=== PATIENT | male | born 1975 | race African-American/Black ===

== ENCOUNTER 2021-03-30 13:18 | Emergency (ER) | payer SELFPAY ==
[~2021-03-30] VITALS: Ht 162.6 cm; Wt 102.5 kg
[2021-03-30 13:32] VITALS: BP 158/96
--- NOTE | 2021-03-30 13:35 | PHYS DOC ---
Past History Past Medical History: No Pertinent History Past Surgical History: No Surgical History Smoking: Non-smoker Alcohol Use: None Drug Use: None Adult General HPI HPI Patient is a 45-year-old male presenting via EMS for code stroke. Last known normal was 1245. Patient was at [facility] when symptoms started. He was in a seated position and [facility] was dismissed so he stood up when he started having symptoms of lightheadedness, dizziness, alteration in smell and generalized confusion. States states shortly after symptom onset he had difficulty speaking and felt weak falling to his knees. This entire episode was witnessed by bystanders, there is no obvious loss of consciousness, trauma, patient did not hit his head and was caught before any other type of body trauma beyond falling to his knees. EMS was contacted and on arrival, patient found to have unremarkable fingerstick glucose and was hemodynamically stable. There was concern given reported symptoms so EMS called code stroke and emergently transported patient to our facility Review of Systems Review of Systems Fourteen body systems of review of systems have been reviewed. See HPI for pertinent positives and negative responses, other arreola all other systems are negative, non-pertinent or non-contributory Physical Exam Physical Exam General: Appears well, age-appropriate, overweight but is non toxic in appearance, and comfortable Skin: Warm, dry. Normal for ethnicity. HEENT: Atraumatic. PERRLA. Moist mucous membranes. Neck: Trachea midline. Normal ROM. Respiratory: Normal WOB. CTAB w/o w/r/r. No tachypnea. Cardiovascular: Regular rate and rhythm. Normal peripheral perfusion. No edema. Abdomen: Soft. Non tender. No distension. Back: Normal ROM. Musculoskeletal: No swelling or deformity. Neuro: Alert and oriented x 4. MAEE. GCS 15. Normal FNF. Negative pronator drift. Normal heel to callahan. Normal Anthony. CN II-XII intact. Normal strength and sensation. Normal speech. Psych: Normal affect and mood. Current Patient Data Vital Signs Vital Signs Date Time Temp Pulse Resp B/P (MAP) Pulse Ox O2 Delivery O2 Flow Rate FiO2 03/30/21 13:32 70 18 158/96 (116) 95 Vital Signs Date Time Temp Pulse Resp B/P (MAP) Pulse Ox O2 Delivery O2 Flow Rate FiO2 03/30/21 13:32 70 18 158/96 (116) 95 Lab Results Laboratory Tests Test 03/30/21 13:30 03/30/21 13:31 03/30/21 14:12 White Blood Count 4.9 x10^3/uL Red Blood Count 5.33 x10^6/uL Hemoglobin 15.4 g/dL Hematocrit 46.8 % Mean Corpuscular Volume 88 fL Mean Corpuscular Hemoglobin 29 pg Mean Corpuscular Hemoglobin Concent 33 g/dL Red Cell Distribution Width 13.7 % Platelet Count 282 x10^3/uL Neutrophils (%) (Auto) 72 % Lymphocytes (%) (Auto) 17 % Monocytes (%) (Auto) 7 % Eosinophils (%) (Auto) 2 % Basophils (%) (Auto) 1 % Neutrophils # (Auto) 3.5 x10^3uL Lymphocytes # (Auto) 0.9 x10^3/uL Monocytes # (Auto) 0.4 x10^3/uL Eosinophils # (Auto) 0.1 x10^3/uL Basophils # (Auto) 0.1 x10^3/uL Prothrombin Time 9.6 SEC Prothromb Time International Ratio 0.9 Activated Partial Thromboplast Time 24 SEC Sodium Level 139 mmol/L Potassium Level 4.1 mmol/L Chloride Level 102 mmol/L Carbon Dioxide Level 28 mmol/L Anion Gap 9 Blood Urea Nitrogen 15 mg/dL Creatinine 1.3 mg/dL Estimated GFR (Cockcroft-Gault) 72.9 Glucose Level 91 mg/dL Calcium Level 9.1 mg/dL Troponin I High Sensitivity 7 ng/L Glucose (Fingerstick) 65 mg/dL 123 mg/dL EKG EKG EKG ordered and interpreted by myself at 1339 hrs. as sinus rhythm at 73 bpm, unremarkable intervals, no axis deviation, no obvious ischemic findings, no STEMI Radiology/Procedures Radiology/Procedures CT HEAD WITHOUT CONTRAST History: Reason: SLURRED SPEECH /, code stroke. Comparison: None. Procedure: Axial images are obtained of the head from the skull base through the vertex without IV contrast. Findings: The ventricles and sulci are normal for the patient's age. No mass-effect, midline shift, hemorrhage, extra-axial fluid collection, or obvious acute infarction is identified. Basilar cisterns are patent. Bone windows demonstrate no acute calvarial abnormality. Minimal mucosal thickening bilateral maxillary sinuses. No air-fluid level. Mastoid air cells are well aerated. IMPRESSION: No acute intracranial abnormality. //////////////////////////////////////////////// EXAM: Chest, single view. HISTORY: Code stroke. COMPARISON: None. FINDINGS: A frontal view of the chest is obtained. There is no infiltrate, pleural effusion or pneumothorax. The heart is normal in size. IMPRESSION: No acute pulmonary finding. Electronically signed by: Sulma Elder MD (03/30/2021 1:45 PM) [facility] Heart Score C/O Chest Pain: No Risk Factors: Risk Factors: DM, Current or recent (<one month) smoker, HTN, HLP, family history of CAD, obesity. Risk Scores: Risk Factors: DM, Current or recent (<one month) smoker, HTN, HLP, family history of CAD, obesity. Course & Med Decision Making Course & Med Decision Making Code stroke initiated initially on arrival NIH stroke scale [address] scanner[address] CT head performed initially read by myself as negative, shortly after confirmed by radiologist. [id number] glucose 65 Patient brought back to room where further history, physical exam and comprehensive ER work-up obtained. Patient feels he is back at baseline, confirmed by at bedside Work-up reviewed with patient and grossly nonconcerning for any emergent or surgical issues. Discussed likely cause of symptoms being hypoglycemic episode versus vagovagal presyncopal episode, less likely intracranial abnormality or other potentially life-threatening diagnosis Patient monitored in the ER without recurrence of symptoms. Joint decision made among all to discharge home with close PCP follow-up. Strict return cautions discussed prior to ER departure Dragon Disclaimer Dragon Disclaimer This electronic medical record was generated, in whole or in part, using a voice recognition dictation system. Departure Departure: Impression: Primary Impression: Pre-syncope Disposition: HOME / SELF CARE / HOMELESS Condition: STABLE Referrals: PCP,NO (PCP) YESENIA MACHUCA MD Patient Instructions: Syncope, [id number] Additional Instructions: You were seen for a presyncopal episode. You should make sure to drink plenty of fluids. It is unclear what caused your symptoms but your initial evaluation did not show any concerning symptoms or features. Your comprehensive ER work-up was nonconcerning for any emergent or surgical issues. Return to the ED immediately if you develop worsening symptoms, chest pain, shortness of breath, numbness, tingling, weakness, vision change, or any other new or concerning symptoms. You should follow up with your primary care doctor/manager supplier in a few days to have your labs repeated and to be evaluated again. TRACE TORIBIO DO Mar 30, 2021 13:35
--- NOTE | 2021-03-30 13:37 | EKG ---
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
--- NOTE | 2021-03-30 13:47 | RAD ---
EXAM: Chest, single view. HISTORY: Code stroke. COMPARISON: None. FINDINGS: A frontal view of the chest is obtained. There is no infiltrate, pleural effusion or pneumo thorax. The heart is normal in size. IMPRESSION: No acute pulmonary finding. Electronically signed by: Sulma Elder MD (03/30/2021 1:45 PM) [facility]
--- NOTE | 2021-03-30 13:49 | RAD ---
PQRS Compliance Statement: One or more of the following individualized dose reduction techniques were utilized for this examinat ion: 1. Automated exposure control 2. Adjustment of the mA and/or kV according to patient size 3. Use of iterative reconstruction technique CT HEAD WITHOUT CONTRAST History: Reason: SLURRED SPEECH /, code stroke. Comparison: None. Procedure: Axial images are obtained of the head from the skull base through the vertex without IV co ntrast. Findings: The ventricles and sulci are normal for the patient's age. No mass-effect, midline shift, hemorrhage, extra-axial fluid collection, or obvious acute infarction is identified. Basilar cisterns are patent. Bone windows demonstrate no acute calvarial abnormality. Minimal mucosal thickening bilateral maxillary sinuses. No air-fluid level. Mastoid air cells are wel l aerated. IMPRESSION: No acute intracranial abnormality. FOR INTERNAL CODING PURPOSES Critical result: Findings discussed with TRACE TORIBIO DO at 03/30/2021 1:30 PM. RESULT CODE: (C) Electronically signed by: James Corral MD (03/30/2021 1:47 PM) [facility]
[2021-03-30 13:52] LABS: BASO # 0.1 x10^3/uL (0.0-0.2); BASO % 1 % (0-3); EOS # 0.1 x10^3/uL (0.0-0.7); EOS % 2 % (0-3); HEMATOCRIT 46.8 % (39.0-53.0); HEMOGLOBIN 15.4 g/dL (13.0-17.5); LYMPH # 0.9 x10^3/uL (1.0-4.8); LYMPH % 17 % (24-48); MEAN CORPUSCULAR HEMOGLOBIN 29 pg (25-35); MEAN CORPUSCULAR HGB CONC 33 g/dL (31-37); MEAN CORPUSCULAR VOLUME 88 fL (79-100); MONO # 0.4 x10^3/uL (0.0-1.1); MONO % 7 % (0-9); NEUT # 3.5 x10^3uL (1.8-7.7); NEUT % 72 % (31-73); PLATELET COUNT 282 x10^3/uL (140-400); RED BLOOD COUNT 5.33 x10^6/uL (4.30-5.70); RED CELL DISTRIBUTION WIDTH 13.7 % (11.5-14.5); WHITE BLOOD COUNT 4.9 x10^3/uL (4.0-11.0)
[2021-03-30 14:01] LABS: CALCIUM 9.1 mg/dL (8.5-10.1); CREATININE 1.3 mg/dL (0.7-1.3); GFR 72.9; POTASSIUM 4.1 mmol/L (3.5-5.1)
== END 2021-03-30 15:04 | disposition home or self-care (01) ==
LOC: ER 13:18
DX: R55 Syncope and collapse (principal); R53.1 Weakness
CPT/HCPCS: 36415; 70450; 71045; 80048; 82947; 84484; 85025; 85610; 85730; 93005; 99285